=== PATIENT | female | born 1955 | race Caucasian/White ===

== ENCOUNTER → 2017-05-09 13:14 | Outpatient (CLI) | payer MEDICARE | END | disposition home or self-care (01) | LOC: D.CT 05-08 17:00 | DX: G44.209 Tension-type headache, unspecified, not intractable (principal) ==

== ENCOUNTER 2018-02-21 12:11 | Outpatient (CLI) | payer MEDICARE ==
[~2018-02-21] VITALS: Ht 170.2 cm; Wt 68.2 kg
[2018-02-21 16:20] VITALS: BP 105/59; Ht 170.2 cm; Wt 68.2 kg
== END 2018-02-21 16:50 | disposition home or self-care (01) ==
LOC: D.OPS 12:11
DX: D69.6 Thrombocytopenia, unspecified (principal)